=== PATIENT | female | born 1975 | race African-American/Black ===

== ENCOUNTER 2017-09-21 20:52 | Emergency (ER) | payer OTHER ==
[2017-09-21 22:33] LABS: ABSOLUTE BASOPHIL COUNT 0.1 /CUMM (0.0-0.2); ABSOLUTE EOSINOPHIL COUNT 0.1 /CUMM (0.0-0.7); ABSOLUTE GRANULOCYTE CT 4.6 /CUMM (1.4-6.5); ABSOLUTE LYMPH COUNT 2.2 /CUMM (1.2-3.4); ABSOLUTE MONOCYTE COUNT 0.6 /CUMM (0.10-0.60); BASOPHIL % 0.7 % (0.0-2.0); GRANULOCYTE % 61.7 % (42.2-75.2); MEAN CORPUSCULAR HGB 31.5 PG (27.0-31.0); MEAN CORPUSCULAR HGB CONC 33.5 G/DL (33.0-37.0); MEAN CORPUSCULAR VOLUME 94.1 FL (81.0-99.0); MEAN PLATELET VOLUME 7.4 FL (7.4-10.4); PLATELET COUNT 230 /CUMM (130-400); RBC DISTRIBUTION WIDTH 13.6 % (11.5-14.5); RED BLOOD CELL CT 4.57 /CUMM (4.20-5.40); WHITE BLOOD CELL COUNT 7.5 /CUMM (4.8-10.8)
--- NOTE | 2017-09-21 23:33 | RADIOLOGY REPORT ---
EXAMINATION: XR CHEST CLINICAL INFORMATION: Chest pain. COMPARISON: Chest x-ray 07/11/2012 TECHNIQUE: 2 views of the chest were obtained. FINDINGS: No significant abnormality is noted involving the heart, lungs, mediastinum, bony thorax or soft tissues. IMPRESSION: Unremarkable examination.
[2017-09-22 00:26] VITALS: BP 105/79
--- NOTE | 2017-09-22 00:46 | ED AMS/SEIZURE/WEAK/DIZZY ---
History of Present Illness General Chief Complaint: Dizziness Stated Complaint: PT IS FEELING DIZZIES Source: patient Exam Limitations: no limitations Vital Signs & Intake/Output Vital Signs & Intake/Output Vital Signs Date Time Temp Pulse Resp B/P B/P Pulse O2 O2 Flow FiO2 Mean Ox Delivery Rate 09/22 0026 97.3 81 20 105/79 98 Room Air 09/210 98.0 90 20 117/78 98 Allergies Uncoded Allergies: ENVIRONMENTAL (10/28/11) Reconcile Medications Amoxicillin/Potassium Clav (Augmentin 875-125 Tablet) 875 MG-125 MG TABLET 1 TAB PO BID ear infection Benzonatate (Tessalon Perle) 100 MG CAPSULE 1 CAP PO TID PRN cough Ibuprofen 600 MG TABLET 1 TAB PO TID PRN pain with food Triage Note: PER PT STUFFINESS IN HEAD AND DIZZYNESS SINCE AM VOMITTED THIS AM BUT NOTHING SINCE Triage Nurses Notes Reviewed? yes Onset: Gradual Duration: day(s): Timing: recent history Injury Environment: home Severity: mild Modifying Factors: Improves With: rest. : No Patient currently breastfeeds: No HPI: 42 yo woman presents smoker, presents with right ear pain, sinus congestion, diarrhea, no vomiting or abdominal pain. She notes no fever, chills, chest pain. She is otherwise well. Past History Travel History Traveled to [place] past 21 day No Medical History Any Pertinent Medical History? see below for history Neurological: NONE EENT: NONE Cardiovascular: NONE Respiratory: NONE Gastrointestinal: NONE Hepatic: NONE Renal: NONE Musculoskeletal: NONE Psychiatric: NONE Endocrine: NONE Surgical History Surgical History: none Psychosocial History What is your primary language Irish Tobacco Use: Current Daily Use Daily Tobacco Use Amount/Type: =< 4 Cigarettes daily Family History Hx Contributory? No Review of Systems Review of Systems Constitutional: Reports: no symptoms. EENTM: Reports: no symptoms. Respiratory: Reports: no symptoms. Cardiovascular: Reports: no symptoms. GI: Reports: no symptoms. Genitourinary: Reports: no symptoms. Musculoskeletal: Reports: no symptoms. Skin: Reports: no symptoms. Neurological/Psychological: Reports: no symptoms. Hematologic/Endocrine: Reports: no symptoms. Immunologic/Allergic: Reports: no symptoms. All Other Systems: Reviewed and Negative Physical Exam Physical Exam General Appearance: well developed/nourished, no apparent distress Head: atraumatic, normal appearance Eyes: Bilateral: normal appearance. Ears, Nose, Throat: normal pharynx, right TM w/ erythema, mild sinus tenderness to palpation. inflamed turbinates bilaterally Neck: normal inspection, supple, full range of motion Respiratory: normal breath sounds, chest non-tender, no respiratory distress, quiet respiration Cardiovascular: regular rate/rhythm Gastrointestinal: normal bowel sounds, soft, non-tender Back: normal inspection Extremities: normal range of motion Neurologic/Psych: no motor/sensory deficits, awake, alert, oriented x 3 Skin: intact, normal color, warm/dry Core Measures ACS in differential dx? No CVA/TIA Diagnosis No Sepsis Present: No Sepsis Focused Exam Completed? No Progress Differential Diagnosis: ear infection, sinusitis vs other. Plan of Care: Orders Procedure Date/time Status TROPONIN LEVEL 09/22 2111 Complete LIPASE 09/22 2111 Complete HEPATIC FUNCTION PANEL 09/22 2111 Complete HUMAN BETA HCG SCREEN 09/22 2111 Complete D-DIMER 09/22 2111 Complete CBC WITHOUT DIFFERENTIAL 09/22 2111 Complete BASIC METABOLIC PANEL 09/22 2111 Complete AMYLASE 09/22 2111 Complete EKG 09/22 2111 Active Laboratory Tests 09/21/17 2224: Anion Gap 10, Estimated GFR > 60, BUN/Creatinine Ratio 10.0, Glucose 81, Calcium 9.2, Total Bilirubin 0.6, Direct Bilirubin 0.4, AST 12 L, ALT 22, Alkaline Phosphatase 42, Troponin I < 0.01, Total Protein 7.0, Albumin 4.1, Amylase 58, Lipase 86, Total Beta HCG NEGATIVE, D-Dimer High Sensitivty < 200, CBC w Diff NO MAN DIFF REQ, RBC 4.57, MCV 94.1, MCH 31.5 H, MCHC 33.5, RDW 13.6, MPV 7.4, Gran % 61.7, Lymphocytes % 29.0, Monocytes % 7.6, Eosinophils % 1.0, Basophils % 0.7, Absolute Granulocytes 4.6, Absolute Lymphocytes 2.2, Absolute Monocytes 0.6 , Absolute Eosinophils 0.1, Absolute Basophils 0.1 Initial ED EKG: nsr, no acute changes Departure Departure Disposition: HOME OR SELF CARE Condition: Stable Clinical Impression Primary Impression: Dizziness Secondary Impressions: Otitis media, Sinusitis Referrals: Amor Polk DO (PCP/Family) Departure Forms: Customer Survey General Discharge Information Prescriptions: Current Visit Scripts Amoxicillin/Potassium Clav (Augmentin 875-125 Tablet) 1 TAB PO BID #14 TAB Ibuprofen 1 TAB PO TID PRN pain #30 TAB with food Benzonatate (Tessalon Perle) 1 CAP PO TID PRN cough #30 CAP Comments well appearing in ed, will treat for sinusitis/ear infection... close follow up advised.
[2017-09-22] MEDS ORDERED: AUGMENTIN 875-1 EACH PO (01:09)
[2017-09-22] MEDS ORDERED: TESSALON PERLE100 M1 PO (01:09)
[2017-09-22] MEDS ORDERED: IBUPROFEN600 M1 PO (01:09)
== END 2017-09-22 01:21 ==
LOC: ERH 20:52
PROVIDERS: Pediatrics
DX: J32.9 Chronic sinusitis, unspecified (principal); H66.91 Otitis media, unspecified, right ear; F17.210 Nicotine dependence, cigarettes, uncomplicated
CPT/HCPCS: 71046; 93005; 93010